=== PATIENT | female | born 1990 | race American Indian/Alaskan Native ===

== ENCOUNTER 2017-08-16 13:54 | Outpatient (CLI) | payer OTHER ==
[2017-08-16] MEDS ORDERED: LACTATED RINGERS 500 ML IV ONE (13:59)
[2017-08-16] MEDS ORDERED: LACTATED RINGERS 1,000 ML IV ONE (14:30)
[2017-08-16 14:47] LABS: Bilirubin,Urine NEG (Negative); Blood,Urine SM (Negative); Color,Urine Yellow (Yellow); Mucus,Urine 1+ /HPF; Urobilinogen,Urine < 2.0 mg/dL (<2.0)
[2017-08-16 15:40] VITALS: BP 133/93
--- NOTE | 2017-08-20 14:18 | Ultrasound Report ---
FINAL REPORT PROCEDURE: US OB > = 14 WEEKS FETUS TECHNIQUE: Real-time transabdominal sonography of the uterus, placenta, amniotic fluid, adnexa, and fetus was performed with image documentation. Measurements were obtained to determine age/size. M-mode Doppler was used to document heartbeat. CPT 88323 HISTORY: vaginal bleeding, look at placenta for abruption COMPARISON: No prior studies are available for comparison. FINDINGS: There is a single living intrauterine gestation currently in the vertex presentation with a heart rate of 145 beats per minute. Subjectively the amount of amniotic fluid appears increased. There does appear to be polyhydramnios. The amniotic fluid index is 32.7 centimeters. Placenta is located fundal and right lateral and is grade 2. No abruption visualized. The ventricles appear markedly enlarged. There appears to be marked hydrocephalus. Facial features are not demonstrated. Spine appears intact. Stomach and bladder were visualized. Kidney showed no gross abnormality. Four-chamber view of the heart is unremarkable. Three-vessel cord confirmed with visualization of 2 arcuate arteries at the level of the urinary bladder. MEASUREMENTS: BPD: 9.6 centimeter equals 39 weeks 2 days HC: 33.4 centimeter quit 38 week 2 days AC: 28.8 centimeter equals 32 week 5 days FL: 6.1 centimeter equals 31 week 5 days Mean Gestational Age (composite criteria): 35 week 4 days[address] places EDC 09/16 +/-3 weeks. Biparietal diameter head circumference significantly increased. Estimated Weight: 2219 grams. IMPRESSION: Single living intrauterine gestation visualized currently vertex presentation. Average sonographic age by today's study is 35 weeks 4 days placing the EDC at 09/16/2017 +/-3 weeks. Subjectively and by amniotic fluid index there is polyhydramnios. There appears to be marked ventriculomegaly, hydrocephalus. Consider follow-up Ob ultrasound at high risk ultrasound center. Grade 2 placenta visualized. No abruption visualized. The internal cervical os was not well visualized on this exam.
== END 2017-08-16 16:56 | disposition home or self-care (01) ==
LOC: TRG 13:54
PROVIDERS: ATTEND Obstetrics & Gynecology
DX: O47.03 False labor before 37 completed weeks of gestation, third trimester (principal); Z3A.35 35 weeks gestation of pregnancy
CPT/HCPCS: 59025; 76805; 81001; 96360; J7120

== ENCOUNTER 2017-08-16 20:01 | Inpatient (IN) | payer OTHER ==
[2017-08-16] MEDS ORDERED: PITOCin/NS 20 UNIT/1000ML DRIP 20,000 MILLIUNITS/1,000 ML BAG IV ONE (20:21)
[2017-08-16] MEDS ORDERED: XYLOCAINE 2% INFILTRATI ONE ×2 (20:25→21:34)
[2017-08-16] MEDS ORDERED: MINERAL OIL ONE (20:33)
[2017-08-16] MEDS ORDERED: METHERGINE IM ONE (20:48)
--- NOTE | 2017-08-16 21:16 | History and Physical Report ---
History of Present Illness Date of examination: 08/16/17 Date of admission: 08/16/17 20:57 Chief complaint: SROM clear fluid @ 8pm History of present illness: Pt is a 26yo BF EDC 10/07/17; EGA 32 4/7 weeks presents to L&D complaining of SROM clear fluid @ 8pm followed by RUC's q 2-3 mins. Cx 10/100/V/0 Pt was recently here @ [facility] ~ 3hrs ago where u/s was performed showing No abruption and cervical length 4.4cm She received care at [facility] and co-managed by [facility] for Hydrocephalus, VSD and Polyhydramnios. records are not available and GBS is unknown. Past History Past Medical History: no pertinent history Past Surgical History: no surgical history Family/Genetic History: none Social history: no significant social history, single - Obstetrical History Expected Date of Delivery: 10/07/17 Actual Gestation: 32 Week(s) 5 Day(s) : 1 Medications and Allergies Allergies Allergy/AdvReac Type Severity Reaction Status Date / Time No Known Allergies Allergy Unverified 08/16/17 13:58 Review of Systems All systems: negative - Vital Signs Vital signs: Vital Signs Pulse BP 103 H 137/93 08/16/17 20:26 08/16/17 20:26 Temp Pulse Resp BP Pulse Ox 97 H 131/86 08/16/17 21:12 08/16/17 21:12 - Physical Exam Breasts: Positive: deferred Cardiovascular: Regular rate Lungs: Positive: Clear to auscultation Abdomen: Positive: normal appearance Genitourinary (Female): Positive: normal external genitalia Vagina: Positive: normal moisture Uterus: Positive: enlarged Extremities: Positive: normal - Obstetrical FHR: category 1 Uterine Contraction Monitor Mode: External Cervical Dilatation: 10 Cervical Effacement Percentage: 100 station: 0 Uterine Contraction Pattern: Regular Uterine Tone Measurement Phase: Contraction Uterine Contraction Intensity: Strong/Firm Results Result Diagrams: 08/16/17 20:25 All other labs normal. Ultrasound: report reviewed Assessment and Plan - Patient Problems (1) 32 weeks gestation of Onset Date: 08/16/17 Current Visit: Yes Status: Acute Plan to address problem: A: IUP @ 32 4/7 weeks in labor Labor Hydrocephalus VSD Polyhydramnios P: Admit to L&D for expectant imminent vaginal delivery NICU available for delivery (2) labor in third trimester with delivery Onset Date: 08/16/17 Current Visit: Yes Status: Acute Qualifiers: Fetus number: single or unspecified fetus Qualified Code(s): O60.14X0 - labor third trimester with delivery third trimester, not applicable or unspecified (3) Hydrocephalus of fetus affecting management of mother in [place] Onset Date: 08/16/17 Current Visit: Yes Status: Acute (4) Polyhydramnios affecting in third trimester Onset Date: 08/16/17 Current Visit: Yes Status: Acute (5) VSD (ventricular septal defect) Onset Date: 08/16/17 Current Visit: Yes Status: Acute
[2017-08-16] MEDS ORDERED: BRETHINE IVP PRN (21:34)
[2017-08-16] MEDS ORDERED: MINERAL OIL PO PRN (21:34)
[2017-08-16] MEDS ORDERED: ePHEDrine SULFATE IV PRN (21:34)
[2017-08-16] MEDS ORDERED: BRETHINE SUB-Q PRN (21:34)
[2017-08-16] MEDS ORDERED: TUCKS PAD TP PRN (21:39)
[2017-08-16] MEDS ORDERED: TYLENOL PO PRN (21:39)
[2017-08-16] MEDS ORDERED: NORCO 5/325 PO PRN (21:39)
[2017-08-16] MEDS ORDERED: DULCOLAX PR PRN (21:39)
[2017-08-16] MEDS ORDERED: PHENERGAN PR PRN (21:39)
[2017-08-16] MEDS ORDERED: PHENERGAN PO PRN (21:39)
[2017-08-16] MEDS ORDERED: ZOFRAN IV PRN (21:39)
[2017-08-16] MEDS ORDERED: LANSINOH TP PRN (21:39)
[2017-08-16] MEDS ORDERED: MILK OF MAGNESIA PO PRN (21:39)
[2017-08-16] MEDS ORDERED: BENADRYL PO PRN (21:39)
[2017-08-16 21:56] LABS: Hematocrit 40.2 % (30.3-42.9); Hemoglobin 13.2 gm/dl (10.1-14.3); Mean Corpuscular HGB Conc 33 % (30-34); Mean Corpuscular Hemoglobin 27 pg (28-32); Mean Corpuscular Volume 82 fl (79-97); Platelet Count 220 K/mm3 (140-440); Red Blood Count 4.88 M/mm3 (3.65-5.03); Red Cell Distribution Width 12.9 % (13.2-15.2)
[2017-08-16] MEDS ORDERED: SODIUM CHLORIDE FLUSH SYRINGE 10 ML IV NR (22:00)
[2017-08-16] MEDS ORDERED: PITOCin/NS 30 UNIT/500ML 30 UNITS/500 ML BAG IV SCH (22:00)
[2017-08-16] MEDS ORDERED: FEOSOL PO SCH (22:00)
[2017-08-16] MEDS ORDERED: PITOCin/NS 20 UNIT/1000ML DRIP 20 UNITS/1,000 ML BAG IV SCH ×2 (22:00)
[2017-08-16] MEDS ORDERED: LACTATED RINGERS 1,000 ML IV SCH (22:00)
--- NOTE | 2017-08-16 22:32 | Procedure Note ---
OB Delivery Note - Delivery Date of Delivery: 08/16/17 Surgeon: YOGI KRAMER Estimated blood loss: other (600ml) - Vaginal Delivery presentation: vertex Delivery position: OP Intrapartum events: labor-<37 weeks, hydramnios, abruption, precipitous labor- <3hr, hemorrhage Delivery induction: none Delivery augmentation: rupture of membranes Delivery monitor: external FHT, external uterine Route of delivery: Delivery placenta: spontaneous Delivery cord: 3 umbilical vessels Episiotomy: none Delivery laceration: none Anesthesia: none Delivery comments: Infant delivered OP and placed on Mom's chest for [id number] bonding and delayed cord clamping, cut by Dad. Peds/RT in attendance - A at 1 minute: 4 at 5 minutes: 6 Gender: Male (2293gms)
[2017-08-17] MEDS ORDERED: MOTRIN PO SCH
[2017-08-17] MEDS ORDERED: M-M-R II VACCINE SUB-Q ONE (06:00)
[2017-08-17] MEDS ORDERED: BOOSTRIX IM ONE (06:00)
--- NOTE | 2017-08-17 07:59 | Progress Note ---
Assessment and Plan - Patient Problems (1) 32 weeks gestation of Onset Date: 08/16/17 Current Visit: Yes Status: Resolved (2) labor in third trimester with delivery Onset Date: 08/16/17 Current Visit: Yes Status: Resolved Qualifiers: Fetus number: single or unspecified fetus Qualified Code(s): O60.14X0 - labor third trimester with delivery third trimester, not applicable or unspecified (3) Hydrocephalus of fetus affecting management of mother in [place] Onset Date: 08/16/17 Current Visit: Yes Status: Resolved (4) Polyhydramnios affecting in third trimester Onset Date: 08/16/17 Current Visit: Yes Status: Resolved (5) VSD (ventricular septal defect) Onset Date: 08/16/17 Current Visit: Yes Status: Resolved (6) (normal spontaneous vaginal delivery) Onset Date: 08/17/17 Current Visit: Yes Status: Resolved Plan to address problem: A: S/P - PPD #1 Doing well P: May go home today Baby remains in NICU. Subjective - Subjective Date of service: 08/17/17 Principal diagnosis: s/p - PPD #1 Interval history: Pt is feeling well without complaints. Bleeding improved. Wants to go home today. Patient reports: appetite normal, voiding normally, pain well controlled, flatus , ambulating normally : doing well, in NICU Objective - Vital Signs Latest vital signs: Vital Signs Temp Pulse Resp BP 08/16/17 22:32 97 H 137/86 08/16/17 21:57 100 H 131/79 08/16/17 21:53 98.1 F 20 08/16/17 21:42 94 H 129/81 08/16/17 21:39 100 H 139/85 08/16/17 21:12 97 H 131/86 08/16/17 20:57 105 H 124/78 08/16/17 20:26 103 H 137/93 Intake and Output 08/16/17 08/17/17 08/17/17 22:59 06:59 14:59 Output Total 400 Balance -400 Output: Urine 400 Void 400 Other: Total, Output Amount 400 # Voids Void 1 Weight 102.965 kg Estimated Blood Loss 600 - Exam Breasts: Present: deferred Cardiovascular: Present: Regular rate Lungs: Present: Clear to auscultation Abdomen: Present: normal appearance, soft Uterus: Present: normal, firm, fundal height below umbilicus Extremities: Present: normal - Labs Labs: Abnormal lab results 08/16/17 Range/Units 20:25 MCH 27 L (28-32) pg RDW 12.9 L (13.2-15.2) % Laboratory Tests 08/16/17 08/16/17 08/16/17 20:25 20:25 23:36 WBC 8.7 RBC 4.88 Hgb 13.2 Hct 40.2 MCV 82 MCH 27 L MCHC 33 RDW 12.9 L Plt Count 220 Hep Bs Antigen HIV 1&2 Antibody Rapid Non react HIV P24 Antigen Non react Blood Type B POSITIVE Antibody Screen Negative 08/16/17 23:36 WBC RBC Hgb Hct MCV MCH MCHC RDW Plt Count Hep Bs Antigen Non-reactive HIV 1&2 Antibody Rapid HIV P24 Antigen Blood Type Antibody Screen
--- NOTE | 2017-08-17 08:20 | Discharge Summary ---
Providers - Providers Date of Admission: 08/16/17 20:57 Date of discharge: 08/17/17 Attending physician: YOGI KRAMER Primary care physician: YOGI KRAMER Hospitalization Reason for admission: active labor, IUP - , labor, rupture of membranes Delivery: Episiotomy: none Laceration: none Other procedures: none complications: none Discharge diagnosis: delivery Reyno baby: male Hospital course: Unremarkable. Condition at discharge: Good Disposition: DC-01 TO HOME OR SELFCARE - Discharge Diagnoses (1) 32 weeks gestation of Status: Resolved (2) labor in third trimester with delivery Status: Resolved Qualifiers: Fetus number: single or unspecified fetus Qualified Code(s): O60.14X0 - labor third trimester with delivery third trimester, not applicable or unspecified (3) Hydrocephalus of fetus affecting management of mother in [place] Status: Resolved (4) Polyhydramnios affecting in third trimester Status: Resolved (5) VSD (ventricular septal defect) Status: Resolved (6) (normal spontaneous vaginal delivery) Status: Resolved Plan - Discharge Medications Prescriptions: Ibuprofen [Motrin 600 MG tab] 600 mg PO Q6H #30 tablet Vit-Fe Fumar-FA [ Vitamin] 1 each PO QDAY #30 tablet - Provider Discharge Summary Activity: routine, no sex for 6 weeks, no heavy lifting 4 weeks, no strenuous exercise Diet: routine Instructions: routine Additional instructions: [] Smoking cessation referral if applicable(refer to patient education folder for contact #) [] Refer to [facility]'s [facility] Booklet Call your doctor immediately for: * Fever > 100.5 * Heavy vaginal bleeding ( >1 pad per hour) * Severe persistent headache * Shortness of breath * Reddened, hot, painful area to leg or breast * Drainage or odor from incision. * Keep incision clean and dry at all times and follow doctor's instructions regarding bathing/showering - Follow up plan Follow up: YOGI KRAMER MD [Primary Care Provider] - 6 Weeks ANASTASIIA CHAVARRIA CNM [Advanced Practice Nurse] - 6 Weeks
[2017-08-17] MEDS ORDERED: PRENATAL VITAMIN PO SCH (10:00)
[2017-08-17 11:10] LABS: Hematocrit 35.7 % (30.3-42.9); Hemoglobin 11.5 gm/dl (10.1-14.3)
[2017-08-17 14:12] VITALS: BP 115/78
== END 2017-08-17 14:45 | disposition home or self-care (01) | DRG 774 ==
LOC: TRG 20:01 → LD 20:14 → TRG 20:57 → OB 23:00
PROVIDERS: ADMIT Obstetrics & Gynecology; ATTEND Obstetrics & Gynecology
PROC: 10E0XZZ Delivery of Products of Conception, External Approach (ICD-10-PCS; principal; 2017-08-16)
PROC: 3E0234Z Introduction of Serum, Toxoid and Vaccine into Muscle, Percutaneous Approach (ICD-10-PCS; principal; 2017-08-16)
DX: O60.14X0 Preterm labor third trimester with preterm delivery third trimester, not applicable or unspecified (principal); O72.1 Other immediate postpartum hemorrhage; O45.93 Premature separation of placenta, unspecified, third trimester; Q21.0 Ventricular septal defect; O33.6XX0 Maternal care for disproportion due to hydrocephalic fetus, not applicable or unspecified; Z3A.32 32 weeks gestation of pregnancy; O40.3XX0 Polyhydramnios, third trimester, not applicable or unspecified; Z37.0 Single live birth; O62.3 Precipitate labor; Z23 Encounter for immunization
CPT/HCPCS: 36415; 85014; 85018; 85027; 86592; 86706; 86850; 86900; 86901; 87806; 88307; J2210; J2590